=== PATIENT | female | born 1995 | race Caucasian/White ===

== ENCOUNTER 2016-11-06 16:43 | Emergency (ER) | payer OTHER ==
[~2016-11-06] VITALS: Wt 50.6 kg
[2016-11-06] MEDS ORDERED: IBUP400T22 PO (17:07)
[2016-11-06] MEDS ORDERED: LORA-186 PO (17:07)
--- NOTE | 2016-11-06 17:23 | ERD ---
ER Documentation Chief Complaint Date/Time DATE: 11/06/16 TIME: 17:22 Chief Complaint FEVER COUGH AND SORE THROAT FOR THE PAST FEW DAYS. HPI 21-year-old female complaining of fever, cough, sore throat for the past 2 days. Denies any current fevers. Denies any medications. Denies nausea, vomiting or diarrhea ROS All systems reviewed and are negative except as per history of present illness. Medications Home Meds Active Scripts Loratadine* (Claritin*) 10 Mg Tablet, 10 MG PO DAILY, #30 TAB Prov:CHRISTOPH GARCIA PA-C 11/06/16 Ibuprofen* (Motrin*) 400 Mg Tab, 400 MG PO Q6H Y for PAIN AND OR ELEVATED TEMP, #30 TAB Prov:CHRISTOPH GARCIA PA-C 11/06/16 Allergies Allergies: Coded Allergies: No Known Allergy (Unverified , 08/25/15) PMhx/Soc Hx Alcohol Use: No Hx Substance Use: No Hx Tobacco Use: No Physical Exam Vitals Vital Signs Date Time Temp Pulse Resp B/P Pulse Ox O2 Delivery O2 Flow Rate FiO2 11/06/16 16:50 99.2 90 20 114/55 99 Physical Exam GENERAL: well-developed/well-nourished, in no apparent distress, non-toxic appearing HEAD: NC/AT, no swelling noted in frontal or maxillary areas EARS: bilateral tympanic membrane is intact without erythema or effusion NARES: nares patent, rhinorrhea and congested THROAT: oropharynx erythematous without exudates, no tonsil enlargement, post nasal drip EYES: Conjunctiva normal NECK: Supple, no lymphadenopathy PULM: CTA bilaterally, no rales, rhonchi, or wheezing heard CV: Normal S1S2, RRR, good capillary refill GI: Soft, non-distended, normal bowel sounds, non-tender BACK: No midline tenderness, no masses EXT No clubbing, cyanosis, or edema NEURO: Alert and Orientated SKIN: Intact, normal turgor PSYCH: Normal mood and mentation Procedures/MDM MDM: 21-year-old female presents to the ER with upper respiratory infection, which is most likely viral. My clinical suspicion is low suspicion for pneumonia , strep pharyngitis, or pulmonary emergencies due to physical examination. Patient's lungs were clear on examination. DISPOSITION: hemodynamically stable for discharge. Prescription fo ibuprofen was given to patient, discussed to return to the ED if not improving as expected or follow-up with a primary care physician. Patient understood and agreed with this plan. Departure Diagnosis: Primary Impression: Viral pharyngitis Condition: Stable Patient Instructions: Uri, Viral, No Abx (Adult) Referrals: CARRIE RUDOLPH MD Additional Instructions: Visite a caruso anurag griggs para un EXAMEN.Regrese a estas instalaciones si no se mejora isis esperbamos o isis le dijimos. [facility] toda la medicina mariana y isis se le indic. Regrese a estas instalaciones si no se mejora isis esperbamos o isis le dijimos. CHRISTOPH GARCIA PA-C Nov 06, 2016 17:23
== END 2016-11-06 17:12 | disposition home or self-care (01) ==
LOC: E/R 16:43
DX: J02.8 Acute pharyngitis due to other specified organisms (principal); B97.89 Other viral agents as the cause of diseases classified elsewhere
CPT/HCPCS: 99283